=== PATIENT | female | born 1955 | race Caucasian/White ===

== ENCOUNTER → 2019-03-09 10:43 | Outpatient (CLI) | payer OTHER | END | disposition home or self-care (01) | LOC: D.HCCARDIO 10:43 | PROVIDERS: ATTEND Internal Medicine Cardiovascular Disease | DX: I20.9 Angina pectoris, unspecified (principal) ==

== ENCOUNTER → 2019-03-15 10:09 | Outpatient (CLI) | payer OTHER | END | disposition home or self-care (01) | LOC: D.HCCARDIO 10:09 | DX: I20.9 Angina pectoris, unspecified (principal) ==

== ENCOUNTER → 2019-08-28 09:42 | Outpatient (CLI) | payer OTHER ==
[~2019-08-28 09:42] MED LIST: BAYER CHEWABLE81 MG PO; BUSPIRONE HCL7.5 MG PO; BUTALB-APAP-CA1 EACH PO; EFFEXOR75 MG PO; LIPITOR20 MG PO; MOBIC7.5 MG PO; OXYBUTYNIN CHLOR5 MG PO; PLAVIX75 MG PO; TRAZODONE HCL150 MG PO; ZESTRIL10 MG PO
[2019-09-23 17:33] VITALS: BMI 22.6
== END | disposition home or self-care (01) ==
LOC: D.HCCARDIO 09:42
PROVIDERS: ATTEND Internal Medicine Cardiovascular Disease
DX: I20.9 Angina pectoris, unspecified (principal)

== ENCOUNTER 2019-09-20 10:32 | Inpatient (IN) | payer OTHER ==
[2019-09-20] VITALS (11 sets, daily range): BP systolic 110–165; BP diastolic 59–77
[~2019-09-20] VITALS: Ht 167.6 cm; Wt 61.1 kg
--- NOTE | ~2019-09-20 | HEMODYNAMI ---
PATIENT:DONNY CARRANZA MEDICAL RECORD: [id number] : 55 LOCATION:[facility] ADMISSION DATE: 09/20/19 Generatedon:09/20/201914:17 Patient name: DONNY CARRANZA Patient #: [id number] SSN: [id number] : 1955 Date of study: 09/20/2019 Page: Of Hemodynamic Procedure Report Patient Data Patient Demographics Procedure consent was obtained First Name: DONNY Gender: Female Last Name: TERE : 1955 Patient #: [id number] Age: 64 year(s) Race: SSN: [id number] Additional ID: [id number] Contact details [address]: [address] [place] [address] [place] State: [place] City: [place] Zip code: [address] Past Medical History Allergies Allergen Reaction Date Comments Reported Other allergy 09/20/2019 tramadol(from Ultram) Admission Admission Data Admission Date: 09/20/2019 Admission Time: 10:32 Arrival Date: 09/20/2019 Arrival Time: 0:00 Admit Source: Other Insurance Payor: Private health insurance [facility] #: [id number] Height (in.): 63 BSA: 1.69 (m2) Height (cm.): 160.02 BMI: 25.69 (kg/m2) Weight (lbs.): 145 Weight (kg.): 65.77 Lab Results Lab Result Date: 09/20/2019 Lab Result Time: 0:00 Biochemistry Name Units Result Min Max BUN mg/dl 14 --(--*-)-- 7 18 Creatinine mg/dl 0.6 --(*---)-- 0.6 1.3 eGFR ml/min 90 --(*---)-- 90 120 NONAFRICAN CBC Name Units Result Min Max Hematocrit % 39.4 -*(----)-- 42 54 Hemoglobin g/dl 13.4 -*(----)-- 13.5 17.5 Procedure Procedure Types Cath Procedure Diagnostic Procedure [facility] w/Coronaries Sedation Charges Moderate Sedation up to 30 minutes PCI Procedure Coronary Stent Coronary Stent Initial Hemochron ACT Test Procedure Description Procedure Date Procedure Date: 09/20/2019 Procedure Start Time: 13:38 Procedure End Time: 14:15 Procedure Staff Name Function Jose Baxter MD Performing Physician Belén Gordon RT Monitor Kirstie Bird RT Monitor Debra Jaramillo RN Nurse Virginia Hood RT Scrub Indication Angina Procedure Data Cath Procedure Fluoroscopy Diagnostic fluoroscopy Total fluoroscopy Time: 6.7 time: 6.7 min min Diagnostic fluoroscopy Total fluoroscopy dose: 577 dose: 577 mGy mGy Contrast Material Contrast Material Type Amount (ml) Isovue 300 102 Entry Location Entry Primary Successful Side Size Upsize Upsize Entry Closure Ferris ccessful Closure Location (Fr) 1 (Fr) 2 (Fr) Remarks Device Remarks Radial Right 6 Fr Mechanical artery Short Compression Estimated blood loss: 10 ml Diagnostic catheters Device Type Used For End Catheter Placement DIAGNOSTIC [place] 110cm 5 Procedure Fr catheter ([id number]) Procedure Complications No complications Procedure Medications Medication Administration Route Dosage Oxygen etCO2 Nasal cannula 2 l/min Lidocaine 2% added to field 20 Heparin Flush Bag added to field 2 bags (1000units/500ml NS) 0.9% NaCl I.V. 100 ml/hr Radial Cocktail I.A. 1 syringe (Verapamil 2mg/Nitro 400mcg/Heparin 1500units) Versed I.V. 1 mg Fentanyl I.V. 50 mcg Versed I.V. 1 mg Fentanyl I.V. 50 mcg Heparin Bolus I.V. 6500 units Versed I.V. 1 mg Versed I.V. 1 mg Hemodynamics Rest BSA: 1.69 (m2) HGB: 13.4 (g/dl) O2 Consumption: Estimated: 158.16 (ml/min) O2 Co nsumption indexed: Estimated:93.59 (ml/min/m) Heart Rate: 70 (bpm) Pressure Samples Time Site Value (mmHg) Purpose Heart Use Rate(bpm) 13:41 LV 136/5,6 Snapshot 93 13:41 LV 132/-9,4 Snapshot 86 Gradients Valve Time Site Site Mean SEP/DFP Peak To Heart Use 1 2 (mmHg) (sec/min) Peak Rate (mmHg) (bpm) Aortic 13:42 LV AO 97 Snapshots Pre Cath Intra NCS Post Cath Vital Signs Time Heart Resp SPO2 etCO2 NIBP (mmHg) Rhythm Pain Sedation Rate (ipm) (%) (mmHg) Status Level (bpm) 13:27:59 69 12 98 33 166/93(143) NSR 0 (11) 10(A) , No pain 13:32:19 71 13 100 38.2 165/84(141) NSR 0 (11) 10(A) , No pain 13:36:37 71 12 97 0 150/81(117) NSR 0 (11) 10(A) , No pain 13:40:53 80 19 98 12.7 156/75(128) NSR 0 (11) 9(A) , No pain 13:45:11 89 14 96 29.2 137/74(97) NSR 0 (11) 9(A) , No pain 13:49:21 91 15 98 9.7 140/81(106) NSR 0 (11) 9(A) , No pain 13:53:35 86 12 95 30.7 133/74(114) NSR 0 (11) 9(A) , No pain 13:57:43 88 13 96 38.2 146/87(107) NSR 0 (11) 9(A) , No pain 14:01:54 90 15 98 16.5 148/87(124) NSR 0 (11) 9(A) , No pain 14:06:04 87 14 98 37.5 153/93(118) NSR 0 (11) 10(A) , No pain 14:10:18 96 17 98 36.7 147/94(130) NSR 0 (11) 10(A) , No pain 14:14:30 83 13 98 15.7 160/85(124) NSR 0 (11) 10(A) , No pain Medications Time Medication Route Dose Verified Delivered Reason Not es Effectiveness by by 13:27:08 Oxygen etCO2 2 l/min Jose Buffie used for Nasal Sahil Jaramillo RN procedure cannula 13:27:14 Lidocaine 2% added 20ml Jose Jose for local to vial Sahil Baxter MD anesthetic field 13:27:20 Heparin Flush added 2 bags Jose Jose used for Bag to Sahil Baxter MD procedure (1000units/500ml field NS) 13:27:29 0.9% NaCl I.V. 100 Jose Buffie Per physician ml/hr Sahil Jaramillo RN 13:33:14 Radial Cocktail I.A. 1 Jose Jose for (Verapamil syringe Sahil Baxter MD vasodilation 2mg/Nitro 400mcg/Heparin 1500units) 13:35:01 Fentanyl I.V. 50 mcg Jose Buffie for sedation Sahil Jaramillo RN 13:35:56 Versed I.V. 1 mg Jose Buffie for sedation Sahil Jaramillo RN 13:41:18 Versed I.V. 1 mg Jose Buffie for sedation Sahil Jaramillo RN 13:41:22 Fentanyl I.V. 50 mcg Jose Buffie for sedation Sahil Jaramillo RN 13:49:45 Heparin Bolus I.V. 6,500 Jose Buffie for chikis ified units Sahil Jaramillo RN anticoagulation with dr baxter 14:00:46 Versed I.V. 1 mg Jose Buffie for sedation Sahil Jaramillo RN 14:53:45 Versed I.V. 1 mg Jose Buffie for sedation Sahil Jaramillo RN Procedure Log Time Note 12:50:29 Informed consent obtained and on chart 12:52:54 Arrival Date: 09/20/2019 12:00:00 AM 12:53:15 Insurance Payor : Private health insurance 12:53:55 Patient Height : 63 inches 12:54:00 Patient Weight : 145 lbs 12:54:06 Admit Source: Other 12:55:18 Lab Result : Creatinine 0.6 mg/dl 12:55:18 Lab Result : BUN 14 mg/dl 12:55:18 Lab Result : Hematocrit 39.4 % 12:55:18 Lab Result : Hemoglobin 13.4 g/dl 12:55:18 Lab Result : eGFR NONAFRICAN 90 ml/min 12:56:25 Patient allergic to Other allergytramadol(from Ultra) 13:01:24 Risk of Mortality: .1 13:01:29 Risk of blood transfusion: 1.1 13:01:35 Risk of LALY: 0.4 13:02:04 Stress Test: yes; abnormal inferior wall 13:02:46 Indication : Angina 13:10:47 Procedure Status Elective Heart Cath (OP). 13:10:51 Debra Jaramillo RN sent for patient. Start room use. 13:10:56 Time tracking: Regular hours (M-F 7:00 - 5:00) 13:11:03 Plan of Care:Hemodynamics will remain stable., Cardiac rhythm will remain stable., Comfort level will be maintained., Respiratory function will remain adequate., Patient/ family verbilizes understanding of procedure., Procedure tolerated without complication., Recovers from procedure without complications.. 13:13:36 ACC Patient presents with Stable Angina CCS Anginal Class 2--Slight limitation of ordinary activity. 13:15:42 ACCPatient has been prescribed/administered the following anti-anginal medication within the last 2 weeks: DON-Inhibitor 13:20:20 Warm blankets applied, and chris hugger turned on for patient comfort. 13:20:21 Correct patient and procedure confirmed by team. 13:20:22 ECG and BP/O2 sat monitors applied to patient. 13:26:52 Vital chart was started 13:27:00 Full Disclosure recording started 13:27:08 Oxygen 2 l/min etCO2 Nasal cannula was administered by Debra Jaramillo RN; used for procedure; Verbal order read back and verified. 13:27:09 H&P Date Dictated: 08/21/2019 Within 30 days and on chart., H&P Addendum completed by physician on day of procedure. (MUST COMPLETE FOR ALL OUTPATIENTS). 13:27:11 Pre-procedure instructions explained to patient. 13:27:11 Pre-op teaching completed and patient verbalized understanding. 13:27:13 Family in patients room. 13:27:14 Lidocaine 2% 20ml vial added to field was administered by Jose Baxter MD; for local anesthetic; Verbal order read back and verified. 13:27:14 Patient NPO since Midnight. 13:27:16 Is the patient allergic to Iodine/contrast media? No. 13:27:20 Heparin Flush Bag (1000units/500ml NS) 2 bags added to field was administered by Jose Baxter MD; used for procedure; Verbal order read back and verified. 13:27:21 Is patient on blood thinner?Yes 13:27:29 0.9% NaCl 100 ml/hr I.V. was administered by Debra Jaramillo RN; Per physician; Verbal order read back and verified. 13:27:33 PLAVIX 13:27:35 Patient diabetic? No. 13:27:39 Patient not . Patient is over age 55. 13:27:41 Previous problem with sedation/anesthesia? No ? 13:27:43 Snore? Yes 13:27:44 Sleep apnea? No 13:27:46 Deviated septum? No 13:27:46 Opens mouth fully? Yes 13:27:47 Sticks out tongue? Yes 13:27:49 Airway obstruction? No ? 13:27:51 Dentures? No ? 13:27:53 Modified Gianluca's test Ulnar < 7 seconds 13:27:56 Patient pain scale 0/10 ?. 13:28:00 IV patent on arrival in left hand with 0.9% NaCl at [facility]. 13:28:03 Lab results completed and on chart. 13:28:07 Right Radial & Right Groin area was prepped with chlora-prep and draped in sterile fashion 13:28:08 Alarms reviewed by R. N. 13:28:08 Sharps counted by scrub and verified by R.N. 13:28:12 Use device set Radial Dx or PCI 13:28:13 ACIST Syringe (16942) opened to sterile field. 13:28:14 Bag Decanter (2002S) opened to sterile field. 13:28:14 ACIST Hand Control (35855) opened to sterile field. 13:28:14 ACIST Manifold (72484) opened to sterile field. 13:28:15 Tegaderm 4 x 4 (1626W) opened to sterile field. 13:28:22 Medline Cath Pack ([id number]) opened to sterile field. 13:28:23 MBrace Wrist Support ([id number]) opened to sterile field. 13:28:23 NEEDLE Cook 21G 4cm Radial (Z67149) opened to sterile field. 13:28:25 SHEATH 6FR RAIN (3970262) opened to sterile field. 13:28:27 EMERALD Guide Wire (309-025) opened to sterile field. 13:29:47 Baseline sample Acquired. 13:29:50 Rhythm: sinus rhythm 13:33:14 Radial Cocktail (Verapamil 2mg/Nitro 400mcg/Heparin 1500units) 1 syringe I.A. was administered by Jose Baxter MD; for vasodilation; Verbal order read back and verified. 13:34:08 --------ALL STOP TIME OUT------ 13:34:09 Final Timeout: patient, procedure, and site verified with staff and physician. All members of the team are in agreement. 13:34:11 Right Radial & Right Groin site verified by team. 13:34:14 Fire Safety Assessment: A--An alcohol-based skin anteseptic being used preoperatively., C--Open oxygen or nitrous oxide is being used., D--An ESU, laser, or fiber-optic light is being used. 13:34:18 Physical assessment completed. ASA score P 2 - A patient with mild systemic disease as per Jose Baxter MD. 13:34:21 1) 90+ Normal kidney functon but urine findings or structural abnormalities or genetic trait point to kidney disease. 13:34:24 Maximum allowable contrast dose (3.7 X eGFR X 0.75)250 ml. 13:34:29 Sedation plan: IV Moderate Sedation Medication:Versed, Fentanyl 13:35:01 Fentanyl 50 mcg I.V. was administered by Debra Jaramillo RN; for sedation; Verbal order read back and verified. 13:35:56 Versed 1 mg I.V. was administered by Debra Jaramillo RN; for sedation; Verbal order read back and verified. 13:37:25 Zero performed for pressure channel P1 13:37:31 Procedure started. 13:38:32 Local anesthetic to right radial artery with Lidocaine 2% by Jose Baxter MD.INITIAL ACCESS ONLY 13:40:02 A 6 Fr Short sheath was inserted into the Right Radial artery 13:40:43 A DIAGNOSTIC [place] 110cm 5 Fr catheter ([id number]) was advanced over the wire and used for Procedure. 13:41:01 LV gram done using VICK 13:41:08 Injector settings: Ml/sec: 5, Volume: 15, 13:41:18 Versed 1 mg I.V. was administered by Debra Jaramillo RN; for sedation; Verbal order read back and verified. 13:41:22 Fentanyl 50 mcg I.V. was administered by Debra Jaramillo RN; for sedation; Verbal order read back and verified. 13:41:56 LV hemodynamics recorded. 13:42:08 EF : 60 % 13:42:53 LCA angiography performed. 13:44:00 Injector settings: Ml/sec: 3, Volume: 6, 13:44:26 RCA angiography performed. 13:44:58 ACCDominant side:Right 13:45:23 Catheter exchanged over wire. 13:45:45 GUIDE 6FR JR 4.0 catheter (FD3PP10) opened to sterile field. 13:45:57 TUBING High Pressure Extension Tubing (Sahil) ([id number]) opened to sterile field. 13:46:19 BMW 300cm Straight [place] 2 wire ([id number]) opened to sterile field. 13:46:28 INFLATOR Merit BasixCompak (NW5863) opened to sterile field. 13:46:37 Proceeding to intervention. 13:46:54 6 Fr JR4 guide catheter was inserted over the wire 13:47:53 Pre PCI Site: [place] mRCA has 80% stenosis. 13:49:25 BMW wire advanced. 13:49:45 Heparin Bolus 6,500 units I.V. was administered by Debra Jaramillo RN; for anticoagulation; verified with dr baxter Verbal order read back and verified. 13:52:08 Wire advanced across lesion. 13:56:27 Place stent Inflation Number: 1 A YAEL OTW 3.5 x 34 stent ([id number]) was prepped and advanced across the Mid RCA . The stent was deployed at 13 DAMIÁN for 0:10 (min:sec) . 13:57:09 Stent catheter was removed intact over wire. 14:00:46 Versed 1 mg I.V. was administered by Debra Jaramillo RN; for sedation; Verbal order read back and verified. 14:03:43 Place stent Inflation Number: 1 A YAEL OTW 3.5 x 12 stent ([id number]) was prepped and advanced across the Prox RCA . The stent was deployed at 13 DAMIÁN for 0:10 (min:sec) . 14:04:09 Stent catheter was removed intact over wire. 14:04:14 Wire removed. 14:04:15 Guide catheter removed. 14:04:22 ACT drawn and resulted at OUT OF RANGE seconds. (normal therapeutic range 180-240 seconds). 14:04:49 ZEPHYR REGULAR TR BAND (709831) opened to sterile field. 14:05:46 Procedure ended.(Physican Out) 14:06:03 Sheath removed intact; hemostasis achieved with Mechanical Compression to the Right Radial artery. 14:06:31 Contrast amount:Isovue 300 102ml. 14:06:43 Fluoroscopy time 06.70 minutes. 14:06:51 Fluoroscopy dose: 577 mGy 14:06:51 Flurop Dose total: 577 14:08:57 Dose Area Product 28377 mGy/cm. 14:09:14 Maximum allowable dose exceeded? No. 14:09:16 Sharps counted by scrub and verified by R.N. 14:09:22 [place] band inflated with 15cc of air. 14:09:26 Insertion/operative site no bleeding no hematoma. 14:09:36 Post right radial artery:stable 14:09:41 Post Procedure Pulses reassessed and unchanged 14:09:45 Post-procedure physical assessment completed. ASA score P 2 - A patient with mild systemic disease as per Jose Baxter MD. 14:09:50 Post procedure rhythm: unchanged. 14:09:56 Estimated blood loss: 10 ml 14:09:58 Post procedure instruction explained to patient.Patient verbalizes understanding. 14:10:00 Patient needs reinforcement of post procedure teaching. 14:11:14 Procedure type changed to Cath procedure, Diagnostic procedure, LHC, C w/Coronaries, Sedation Charges, Moderate Sedation up to 30 minutes, PCI procedure, Coronary Stent, Coronary Stent Initial, Hemochron ACT Test 14:13:10 Procedure and supply charges have been captured, reviewed, submitted and are correct. 14:14:37 Procedure Complication : No complications 14:14:40 Vital chart was stopped 14:14:43 [facility] Findings: MVD- PCI performed (see procedure note) 14:14:48 Operative report dictated upon procedure completion. 14:14:49 See physician's report for complete and final results. 14:15:11 Report given to Pre/Post Procedure Room. 14:15:16 Patient transfered to Pre/Post Procedure Room with Stretcher. 14:15:18 Procedure ended. 14:15:18 Full Disclosure recording stopped 14:15:31 ACC-PCI Only Patient was given prescriptions, or instructed by Jose Baxter MD to start/continue the following medications upon discharge: Plavix 14:15:34 End room use (Document Last) 14:53:45 Versed 1 mg I.V. was administered by Debra Jaramillo RN; for sedation; Verbal order read back and verified. Intervention Summary Intervention Notes Time ActionType Lesion and Equipment Action# Pressure Duration Attributes Used 13:56:27 Place stent Mid RCA YAEL OTW 3.5 1 13 00:10 x 34 stent ([id number]) 14:03:43 Place stent Prox RCA YAEL OTW 3.5 1 13 00:10 x 12 stent ([id number]) Device Usage Item Name Manufacture Quantity Catalog Hospital Part Current Mini mal Lot# / Number Charge Number Stock Stock Serial# Code ACIST Syringe Acist 1 61322 547071 012526 887138 20 (26127) Medical Systems Inc Bag Decanter Microtek 1 2001S 252148 32245 168391 5 (2001S) Medical Inc. ACIST Hand Acist 1 31372 511780 530883 054389 5 Control Medical (32158) Systems Inc ACIST Acist 1 39987 466971 080921 412692 5 Manifold Medical (23954) Systems Inc Tegaderm 4 x 3M 1 1626W 173921 807710 239568 5 4 (1626W) Medline Cath Medline 1 [id number] 804114 92997 116827 5 Pack ([id number]) MBrace Wrist Advanced 1 140-0250-00 408543 86236 277254 5 Support Vascular ([id number]) Dynamics NEEDLE Cook Mimbres Medical 1 W19597 163943 006706 858281 5 21G 4cm Radial (O19662) SHEATH 6FR Cardinal 1 8778794 372764 9154461 955061 5 [facility] (3801608) EMERALD Guide Cardinal 1 502-455 627014 728956 635146 5 [facility] (502-455) DIAGNOSTIC Terumo 1 40-5013 131524 490843 446311 5 [place] 110cm 5 Fr catheter (965373) GUIDE 6FR JR Medtronic 1 [id number] 406063 00574 029318 1 4.0 catheter (GB0ZH95) TUBING High Merit 1 [id number] 078176 94404 093860 10 Pressure Medical Extension Tubing (Baxter) ([id number]) BMW 300cm Gary 1 9533486 784308 553050 467277 5 Straight Vascular [place] 2 wire (9818461) INFLATOR Merit 1 HA1192 820023 847254 894403 15 [facility] Medical BasixCompak (CU2919) YAEL OTW 3.5 Medtronic 1 [id number] 626020 1854656 121043 5 [id number] x 34 stent ([id number]) YAEL OTW 3.5 Medtronic 1 [id number] 588814 3162958 824219 5 [id number] x 12 stent ([id number]) ZEPHYR Cardinal 1 296835 430249 5725187 326664 5 REGULAR TR Health BAND (934524) Signature Audit [place] Stage Time Signature Unsigned Intra-Procedure 09/20/2019 Kirstie 2:16:20 PM Pelon RT(R) (CV) Intra-Procedure 09/20/2019 Debra Jaramillo RN 2:16:52 PM Intra-Procedure 09/20/2019 Jose Baxter MD 2:17:35 PM Signatures Performing Physician : Signature : Jose Baxter MD Date : Time : Monitor : Belénportillo Gordon Signature : RT Date : Time : Monitor : Kirstie Signature : Pelon RT Date : Time : Nurse : Debra Jaramillo RN Signature : Date : Time : [facility] [address] [place] [address], [place] [address]
[2019-09-20 11:59] LABS: ALT (SGPT) 16 U/L (10-68); CALC OSMOLALITY 285 mosm/kg (275-300); CALCIUM 9.2 mg/dL (8.5-10.1); CARBON DIOXIDE 31.3 mmol/L (21.0-32.0); CHLORIDE - SERUM 105 mmol/L (98-107); CHOL - HDL RATIO 2.7 ratio (2.3-4.1); CHOLESTEROL, TOTAL 147 mg/dL (0-200); CREATININE - SERUM 0.6 mg/dL (0.6-1.3); GLUCOSE 92 mg/dL (74-106); HDL CHOLESTEROL 54 mg/dL (32-96); LDL CHOLESTEROL 72 mg/dL (0-100); LDL-HDL RATIO 1.3 ratio (1.5-3.5); SODIUM 143 mmol/L (136-145); TRIGLYCERIDE 108 mg/dL (30-200); UREA NITROGEN 14 mg/dL (7-18); eGFR NON AFRICAN AMERICAN > 90 mL/min (90-120)
[2019-09-20 12:06] LABS: HEMATOCRIT 39.4 % (36.0-48.0); HEMOGLOBIN 13.4 g/dL (12-16); MCH 31.8 pg (26.0-34.0); MCV 93.6 fL (80.0-100.0); MEAN PLATELET VOLUME 11.2 fL (7.4-10.4); PLATELET COUNT 165 10x3/uL (130-400); RBC 4.21 10x6/uL (4.00-5.40); RDW 13.1 % (11.5-14.5); WBC 5.5 10x3/uL (4.8-10.8)
--- NOTE | 2019-09-20 14:22 | NUR ---
REC TO ROOM 4, MONITORING INITIATED, R WRIST CDI [id number] BLEEDING OR HEMATOMA. INSTRUCTED TO LET R ARM REST AND RELAX AT SIDE. CALL LIGHT IN HAND, RAILS UP. FAMILY AT BEDSIDE. L ARM IV PATENT.
[2019-09-20] MEDS ORDERED: OXYBUTYNIN CHLOR5 MG PO (14:41)
--- NOTE | 2019-09-20 14:41 | NUR ---
R WRIST CDI, NO BLEEDING OR HEMATOMA. WIGGLES FINGERS. C/O SL HEADACHE. TYLENOL PREFERRED. SEE ORDERS.
[2019-09-20] MEDS ORDERED: TRAZODONE HCL150 MG PO (14:42)
[2019-09-20] MEDS ORDERED: LIPITOR20 MG PO (14:42)
[2019-09-20] MEDS ORDERED: EFFEXOR75 MG PO (14:43)
[2019-09-20] MEDS ORDERED: ZESTRIL10 MG PO (14:53)
[2019-09-20] MEDS ORDERED: PLAVIX75 MG PO (14:53)
[2019-09-20] MEDS ORDERED: BUSPIRONE HCL7.5 MG PO (14:54)
[2019-09-20] MEDS ORDERED: MOBIC7.5 MG PO (14:54)
[2019-09-20] MEDS ORDERED: BAYER CHEWABLE81 MG PO (14:55)
--- NOTE | 2019-09-20 14:56 | NUR ---
TYLENOL FOR HEADACHE RATED AT 2 ON 1-10 SCALE. HOB UP TO 30* FOR COMFORT. SIPPING WATER WITHOUT DIFFICULTY OR NAUSEA. HR 69 SR, BP 158/75. R WRIST CDI, NO BLEEDING OR HEMATOMA. WIGGLES FINGERS, NO C/O OF NUMBNESS.
--- NOTE | 2019-09-20 15:27 | NUR ---
R WRIST CDI, NO BLEEDING OR HEMATOMA. FINGERS WARM, WIGGLE, NO C/O NUMBNESS.
--- NOTE | 2019-09-20 15:27 | NUR ---
HR 66, BP 162/79
--- NOTE | 2019-09-20 16:00 | NUR ---
PT DISORIENTED TO PLACE, TIME. UNABLE TO ANSWER QUESTIONS. FACE SYMMETRICAL PREPROCEDURE, MOVES ALL LIMBS. R WRIST REMAINS CDI, NO BLEEDING OR HEMATOMA. 1615 DR HARRELL NOTIFIED PT CHANGE IN LOC, RESTLESSNESS. REQUIRING TWO FAMILY MEMBERS AND ONE NURSE TO MAINTAIN SAFETY. CT HEAD STAT ORDERED. 1640 CT HERE, PT ACCOMPANIED TO CT BY THIS RN AND TWO CT STAFF. ATTEMPTING TO GET OOB, YELLING OUT INCOHERENTLY, AND NOT RESPONDING TO VERBAL ATTEMPTS AT REDIRECTION OR DISTRACTION. 1700 BACK TO HOLDING ROOM AFTER CT, INITIAL REPORT VERBAL BY RADIOLOGIST "NOTHING OBVIOUS, NO OBVIOUS BLEED, REC REPEAT SCAN WHEN PT CALM/ABLE TO BE STILL". CONTINUES TO REQUIRE STAFF AND FAMILY TO MAINTAIN SAFETY/KEEP IN BED. CONTINUES TO YELL OUT AND IS UNRESPONSIVE TO VERBAL REDIRECTION. 1701 ORDER REC FOR ADMISSION BY DR ROBB, AND FOR GEODON 10MG IM. CONT TO REQUIRE FAMILY ASSISTANCE AND ONE STAFF TO MAINTAIN SAFETY 1720 GEODON IM GIVEN. TALENT CONSULTANT STAFF X 3 AND CATH RECOVERY STAFF X 1 IN ROOM, REQUIRING PHYSICAL RESTRAINT TO MAINTAIN SAFETY AND KEEP HER IN BED. 1725 REC ROOM NUMBER FOR ADMISSION CV 06. 1735 BEGINNING TO CALM, NOT REQUIRING PHYSICAL RESTRAINT, RESTING W EYES CLOSED, TALENT CONSULTANT STAFF X 3 REMAIN AT BEDSIDE WITH FAMILY. DR ROBB NOTIFIED OF ROOM NUMBER. 3CC AIR RELEASED FROM [facility]BAND BY TALENT CONSULTANT STAFF.
--- NOTE | 2019-09-20 17:36 | NUR ---
REPORT TO KELIN WHYTE RN IN CVICU
--- NOTE | 2019-09-20 17:45 | NUR ---
MOVED TO CV VIA STRETCHER
--- NOTE | 2019-09-20 17:58 | NUR ---
PT ARRIVED TO ROOM VIA STRETCHER. DOES TALK OUT ASKING FOR US TO LEAVE HER ALONE, BUT DOES NOT FOLLOW COMMANDS. WAS RESISTANT TO HAVING MONITORING PLACED ON HER, BUT DID CALM ENOUGH THAT WE COULD GET THEM ON. ONCE WE WERE FINISHED SHE IS RESTING. NO DISTRESS. FAMILY ALLOWED TO COME BACK. PT SLEEPING. THEY WILL RETURN AT 8PM VISITATION TIME. PT HAS BEEN PLACED ON 2L. LEFT HAND PIV SECURED WITH ADDITIONAL BANDAGE. HAS NS RUNNING AT 100. TR BAND TO RIGHT WRIST HAD 3ML OF AIR LET OUT JUST PRIOR TO PT ARRIVAL. BRUISING NOTED TO SITE. HAS WRIST PROTECTOR IN RIGHT WRIST. PT HAS NON-SLIP SOCKS ON. SIDE RAILS X3. BED ALARM ON AND IS DIRECTLY IN FRONT OF NURSE STATION. VSS.
--- NOTE | 2019-09-20 19:00 | NUR ---
REPORT RECEIVED AT BEDSIDE, PT LETHARGIC AND CONFUSED, WAKES TO LIGHT STEMULI ON SHOULDER BUT FALLS BACK ASLEEP QUICKLY AND UNABLE TO ANSWER QUESTIONS, VSS, NSR ON CM, PPP IN ALL EXTREMITIES, RT WRIST PTCA SITE BRUISED SOFT TO PALPALTION, PRESSURE BAND REMOVED AND 2X2 GAUZE WITH TEGADERM DRSG PLACED, SITE C/D/I, EQUAL SENSATION AND MOVEMENT IN ALL EXTREMITIES, LT HAND 20g PIV PATENT DRSG C/D/I, CALL LIGHT IN REACH, BED ALARM ON, WILL CONTINUE TO MONITOR
--- NOTE | 2019-09-20 22:30 | NUR ---
SBP ELEVATED 160'S, OTHER VSS, BRAD JINN CALLED UPDATED ON PT, ORDERS RECEIVED SEE MAR/ORDERS FOR FURTHER, WILL CONTINUIE TO MONITOR
--- NOTE | 2019-09-20 22:40 | NUR ---
BED ALARM ACTIVATED BY PT MOVEMENT, RN AT BEDSIDE, PT STATED SHE NEEDED TO USE BATHROOM, BEDSIDE COMMODE PROVIDED, PT C/O WEAKNESS AND DIZZIENESS WHEN STANDING, RN ASSISTED PT IN MOVEMENT TO COMMODE, CALL LIGHT IN REACH, COMPLETE LINEN CHANGE AND YELLOW GOWN PLACED ON PT, ASISTED WITH MALIA-CARE, CLEAR YELLOW VOID NOTED, PT ASSISTED BACK TO BED, REPOSITIONED FOR COMFORT, CALL LIGHT IN REACH, VSS, BED ALARM ON, WILL CONTINUE TO MONITOR
--- NOTE | 2019-09-20 23:05 | NUR ---
BRAD OCHOA CATTLE KNOCKER IN CVICU, UPDATE GIVEN, PT CONFUSED BUT ABLE TO STATE NAME AND , CONFUSED ABOUT TIME AND LOCATION, ATTEMPTS TO REORIENT PT TO SITUATION, VSS, NSR ON CM, BED ALARM ON AND BED IN LOW POSITION, IMELDA HOSE AND NON-SLIP SOCKS ON BLE, RT WRIST DRSG C/D/I NO S/S OF BLEED, BRUISING NOTED, RT UPPER ARM ELEVATED ON PILLOW, LT HAND 20g PIV KVO, REASSESSMENT COMPLETE PER FLOW SHEET, WILL CONTINUE TO MONITOR
[2019-09-21] VITALS (12 sets, daily range): BP systolic 131–157; BP diastolic 61–79; Ht 167.6 cm; Wt 61.1 kg
--- NOTE | 2019-09-21 03:00 | NUR ---
REASSESSMENT COMPLETE PER FLOW SHEET, NO ACUTE CHANGES OR DISTRESS NOTED, PT CONTINUES TO BE CONFUSED ABOUT TIME PLACE AND SITUATION, ALL PULSES PALPABLE, RT WRIST PTCA SITE C/D/I, BRUISING NOTED TO EXTREMITY WITH NO CHANGE FROM PRIOR ASSESSMENT, SITE SOFT TO PALPATION, VSS, NSR ON CM, REPOSITIONED FOR COMFORT, CALL LIGHT IN REACH, BED ALARM ON, WILL CONTINUE TO MONITOR
--- NOTE | 2019-09-21 04:20 | NUR ---
PT ASSISTED OOB TO BATHROOM, CLEAR YELLOW VOID NOTED, AMBULATION WITH RN ASSIST D/T PT UNSTABLE GAIT, REPOSITIONED BACK IN BED FOR COMFORT, VSS, CALL LIGHT IN REACH, BED ALARM ON
--- NOTE | 2019-09-21 05:20 | NUR ---
PT OOB TO BATHROOM WITH RN ASSIST, CLEAR YELLOW VOID NOTED, ASSISTED PT BACK TO BED, VSS, CALL LIGHT IN REACH, BED ALARM ON
[2019-09-21 06:00] LABS: HEMATOCRIT 37.9 % (36.0-48.0); LYMPHOCYTES 31.6 % (15-50); MCH 31.9 pg (26.0-34.0); MCHC 34.3 g/dL (31.0-37.0); MCV 92.9 fL (80.0-100.0); MEAN PLATELET VOLUME 10.9 fL (7.4-10.4); NEUTROPHILS 61.3 % (40-80); PLATELET COUNT 158 10x3/uL (130-400); RBC 4.08 10x6/uL (4.00-5.40); WBC 6.7 10x3/uL (4.8-10.8)
[2019-09-21 06:27] LABS: CALC OSMOLALITY 277 mosm/kg (275-300); CALCIUM 9.1 mg/dL (8.5-10.1); CARBON DIOXIDE 28.1 mmol/L (21.0-32.0); CHLORIDE - SERUM 105 mmol/L (98-107); CREATININE - SERUM 0.6 mg/dL (0.6-1.3); GLUCOSE 114 mg/dL (74-106); PHOSPHOROUS 3.2 mg/dL (2.5-4.9); POTASSIUM - SERUM 3.7 mmol/L (3.5-5.1); SODIUM 140 mmol/L (136-145); eGFR NON AFRICAN AMERICAN > 90 mL/min (90-120)
[2019-09-21 06:31] LABS: UREA NITROGEN 8 mg/dL (7-18)
--- NOTE | 2019-09-21 07:15 | NUR ---
report received. pt awake, conversant. oriented. moves all extremities. has been up to toilet. significant bruising noted to right hand and forearm. dressing at right wrist is c,d,i.
--- NOTE | 2019-09-21 07:36 | NUR ---
dr perez by to see pt. will have family medicine see her. may send home later today if all agree.
--- NOTE | 2019-09-21 10:21 | NUR ---
DR ROBB HAS BEEN BY TO SEE PATIENT. SPOKE WITH HER AND FAMILY. WILL DC HOME.
--- NOTE | 2019-09-21 10:48 | NUR ---
PIV TO LEFT HAND DC'D. TIP INTACT. NO BLEEDING.
--- NOTE | 2019-09-21 12:45 | NUR ---
WHEN SPEAKING TO PT AND FAMILY ABOUT DISCHARGE THE FRIEND ASKED ABOUT WHAT TO DO ABOUT THE PT'S CHEST PAIN. THIS WAS THE FIRST I HAVE HEARD OF HER HAVING CHEST PAIN I ASKED HER TO DESCRIBE IT. SHE SAID IT WAS "JUST AN ACHE" THAT "COMES AND GOES" SAID SHE HAD IT BEFORE GOING IN FOR CATH PROCEDURE. SHE IS SINUS ON THE MONITOR. PULLED STRIPS FROM PAST 12 HOURS, NO DIFFERENCE NOTED. CALLED AND SPOKE WITH BRAD IN [facility] WHEN I WAS LOOKING FOR DR HARRELL. DR HARRELL HAD ALREADY LEFT. BRAD SUGGESTED GETTING EKG. ONE OBTAINED, NORMAL SINUS RHYTHM NORMAL ECG RESULTED. WHEN I TOLD THIS TO PT AND , I HAD ASKED HOW LONG THE PAIN HAD BEEN GOING ON. SHE THEN SAID JUST A COUPLE OF DAYS. IT STARTED WHEN SHE WAS MOVING SOME HEAVY STUFF AND FELT PAIN AT THAT TIME. I ASKED HER IF SHE FELT LIKE HER PAIN WAS MORE MUSCLE PAIN IN NATURE AND SHE FEELS IT IS. CALLED BRAD BACK AT [facility] AND LET HIM KNOW OF RESULTS AND CONVERSATION. FEELS NO NEED TO CALL DR HARRELL SINCE PT FEELS IT IS MUSCLE AND NSR ON ECG.
--- NOTE | 2019-09-22 16:28 | MORECARE ---
CASE MANAGEMENT DISCHARGE SUMMARY PATIENT: DONNY CARRANZA UNIT: [id number] ADM DATE: 09/20/19 AGE: 64 : 55 SEX: F ROOM/BED: D[facility] AUTHOR: SUZANNA HESS PHYSICIAN: REFERRING PHYSICIAN: EMRE ROBB MD DATE OF SERVICE: 09/22/19 Discharge Plan Patient Name: DONNY CARRANZA [facility] [facility] 1955 Planned Disposition: Home or Self Care Anticipated Discharge Date: Discharge Date: 09/21/2019 Expected LOS: Initial Reviewer: [email or web address] Initial Review Date: 09/21/2019 Generated: 09/22/19 5:27 pm DCPIA - Discharge Planning Initial Assessment Updated by [email or web address]: Netta Prasad on 09/22/19 4:27 pm * Is the patient Alert and Oriented? Yes * How many steps to enter\exit or inside your home? * PCP ATIF ALVARES MD * Pharmacy [facility] * Preadmission Environment Home with Family * ADLs Independent * Equipment None * List name and contact numbers for known caregivers / representatives who currently or will assist patient after discharge: CALEB CARRANZA - [facility] - [phone] * Verbal permission to speak to the caregivers and representatives has been obtained from the patient. Yes * Community resources currently utilized None * Additional services required to return to the preadmission environment? No * Can the patient safely return to the preadmission environment? Yes * Has this patient been hospitalized within the prior 30 days at any hospital? No Patient Name: DONNY CARRANZA Page [id number] at 1628 All edits/amendments must be made on the electronic document DICTATION DATE: 09/22/191626 JUVENILE CORRECTIONAL OFFICER: DOROTHY 09/22/191626 RPT#: [id number] DC DATE:09/21/19 STATUS: DIS IN [facility] [address] [place] [address] END OF REPORT
--- NOTE | 2019-09-22 16:37 | MORECARE ---
CASE MANAGEMENT DISCHARGE SUMMARY PATIENT: DONNY CRARANZA UNIT: [id number] ADM DATE: 09/20/19 AGE: 64 : 55 SEX: F ROOM/BED: D.06 AUTHOR: JIMENA,DOC PHYSICIAN: REFERRING PHYSICIAN: EMRE ROBB MD DATE OF SERVICE: 09/22/19 Discharge Plan Patient Name: DONNY CARRANZA Facility: [facility]:[place] : 1955 Planned Disposition: Home or Self Care Anticipated Discharge Date: Discharge Date: 09/21/2019 Expected LOS: Initial Reviewer: [email or web address] Initial Review Date: 09/21/2019 Generated: 09/22/19 5:37 pm Comments DCP- Discharge Planning Updated by [email or web address]: Netta Prasad on 09/22/19 3:[address] LATE ENTRY 09/21/19 Patient Name: DONNY CARRANZA Admission Status: Elective Accout number: [id number] Admission Date: 09-20-2019 : 1955 Admission Diagnosis:TOXIC ENCEPHALOPATHY Attending: EMRE ROBB Current LOS: 1 Anticipated DC Date: Planned Disposition: Home or Self Care Primary Insurance: [facility] Discharge Planning Comments: CM met with patient to complete initial dc planning assessment. CM educated patient on the CM role and verbal consent given by patient to complete assessment. Patient lives at home with her where she is independent with her care. At discharge patient plans to return home and feels this is a safe discharge. CM discussed availability of home health, rehab services, and medical equipment. Her will drive her home. Patient denied known discharge needs at this time. CM will continue to follow and will assist as needed with dc plans/needs. Head Charrer: Netta Prasad DCPIA - Discharge Planning Initial Assessment Updated by [email or web address]: Netta Prasad on 09/22/19 4:27 pm * Is the patient Alert and Oriented? Yes * How many steps to enter\exit or inside your home? * PCP ATIF ALVARES MD * Pharmacy [facility] * Preadmission Environment Home with Family * ADLs Independent * Equipment None * List name and contact numbers for known caregivers / representatives who currently or will assist patient after discharge: CALEB CARRANZA - [place] - [phone] * Verbal permission to speak to the caregivers and representatives has been obtained from the patient. Yes * Community resources currently utilized None * Additional services required to return to the preadmission environment? No * Can the patient safely return to the preadmission environment? Yes * Has this patient been hospitalized within the prior 30 days at any hospital? No Last DP export: 09/22/19 3:28 p Patient Name: DONNY CARRANZA Page [id number] at 1637 All edits/amendments must be made on the electronic document DICTATION DATE: 09/22/191636 COST ANALYST: DOROTHY 09/22/191636 RPT#: [id number] DC DATE:09/21/19 STATUS: DIS IN [facility] [address] [place] [address] END OF REPORT
== END 2019-09-21 13:15 | disposition home or self-care (01) | DRG 983 ==
LOC: D.CVICU 10:32 → D.CATH 10:32 → D.CVICU 16:59 → D.CATH 17:40 → D.CVICU 17:40
PROVIDERS: Internal Medicine Cardiovascular Disease; ADMIT Internal Medicine Nephrology; ATTEND Internal Medicine Nephrology
PROC: B2151ZZ Fluoroscopy of Left Heart using Low Osmolar Contrast (ICD-10-PCS; 2019-09-20)
PROC: 4A023N7 Measurement of Cardiac Sampling and Pressure, Left Heart, Percutaneous Approach (ICD-10-PCS; 2019-09-20)
PROC: 027035Z Dilation of Coronary Artery, One Artery with Two Drug-eluting Intraluminal Devices, Percutaneous Approach (ICD-10-PCS; principal; 2019-09-20 13:00)
PROC: B2111ZZ Fluoroscopy of Multiple Coronary Arteries using Low Osmolar Contrast (ICD-10-PCS; 2019-09-20 13:00)
DX: G92 Toxic encephalopathy (principal); I10 Essential (primary) hypertension; E78.5 Hyperlipidemia, unspecified; I25.10 Atherosclerotic heart disease of native coronary artery without angina pectoris; F41.8 Other specified anxiety disorders

== ENCOUNTER 2019-09-23 17:29 | Emergency (ER) | payer OTHER ==
[~2019-09-23] VITALS: Ht 167.6 cm; Wt 63.6 kg
[~2019-09-23 17:29] MED LIST changes: -BUTALB-APAP-CA1 EACH PO
[2019-09-23 17:33] VITALS: Ht 167.6 cm; Wt 63.6 kg
[2019-09-23 18:57] LABS: BASOPHILS 0.3 % (0-2); EOSINOPHILS 1.4 % (0-7); HEMATOCRIT 38.4 % (36.0-48.0); HEMOGLOBIN 12.5 g/dL (12-16); IMMATURE GRANULOCYTES 0.2 % (0-5); LYMPHOCYTES 25.6 % (15-50); MCH 31.1 pg (26.0-34.0); MCHC 32.6 g/dL (31.0-37.0); MCV 95.5 fL (80.0-100.0); MEAN PLATELET VOLUME 11.3 fL (7.4-10.4); MONOCYTES 7.6 % (2-11); NEUTROPHILS 64.9 % (40-80); PLATELET COUNT 167 10x3/uL (130-400); RBC 4.02 10x6/uL (4.00-5.40); RDW 13.7 % (11.5-14.5); WBC 6.3 10x3/uL (4.8-10.8)
[2019-09-23 19:13] LABS: CALC OSMOLALITY 283 mosm/kg (275-300); CALCIUM 9.2 mg/dL (8.5-10.1); CARBON DIOXIDE 31.7 mmol/L (21.0-32.0); CHLORIDE - SERUM 103 mmol/L (98-107); CREATININE - SERUM 0.8 mg/dL (0.6-1.3); GLUCOSE 124 mg/dL (74-106); POTASSIUM - SERUM 3.7 mmol/L (3.5-5.1); SODIUM 141 mmol/L (136-145); UREA NITROGEN 19 mg/dL (7-18); eGFR NON AFRICAN AMERICAN 76 mL/min (90-120)
[2019-09-23 19:21] LABS: ALBUMIN 3.8 g/dL (3.4-5.0); ALKALINE PHOSPHATASE 79 U/L (46-116); ALT (SGPT) 17 U/L (10-68); BILIRUBIN - TOTAL 0.39 mg/dL (0.2-1.3); PROTEIN - SERUM 6.3 g/dL (6.4-8.2)
[2019-09-23] MEDS ORDERED: BUTALB-APAP-CA1 EACH PO (19:32)
[2019-09-23 20:23] VITALS: BP 112/75
== END 2019-09-23 20:23 | disposition home or self-care (01) ==
LOC: D.ER 17:29
PROVIDERS: Emergency Medicine
DX: R51 Headache (principal); I25.10 Atherosclerotic heart disease of native coronary artery without angina pectoris; I10 Essential (primary) hypertension; Z86.73 Personal history of transient ischemic attack (TIA), and cerebral infarction without residual deficits

== ENCOUNTER → 2021-01-02 10:06 | Outpatient (CLI) | payer MEDICARE, BC ==
[2019-09-23 17:33] VITALS: BMI 22.6
[~2021-01-02 10:06] MED LIST changes: +BUTALB-APAP-CA1 EACH PO
== END | disposition home or self-care (01) ==
LOC: D.HCCARDIO 10:06
PROVIDERS: ATTEND Internal Medicine Cardiovascular Disease
DX: I25.10 Atherosclerotic heart disease of native coronary artery without angina pectoris (principal)